=== PATIENT | female | born 1960 | race African-American/Black ===

== ENCOUNTER 2022-06-10 14:22 | Inpatient (IN) | payer MEDICARE, MEDICAID ==
[~2022-06-10] VITALS: Ht 158.8 cm; Wt 86.2 kg
[2022-06-10] MEDS ORDERED: ONDANSETRON HCL 4MG/2ML INJ IV STA (14:34)
[2022-06-10] MEDS ORDERED: MORPHINE SULFATE 4 MG/ML CPJ (NOT FOR IM USE) IV STA (14:34)
[2022-06-10] MEDS ORDERED: SODIUM CHLORIDE 0.9% 1,000 ML IV ONE (14:45)
[2022-06-10 15:25] LABS: BASOPHILS % 0.6 % (0.0-2.0); EOSINOPHILS % 0.6 % (0.0-5.0); HEMATOCRIT. 45.5 % (36.0-48.0); HEMOGLOBIN. 14.5 g/dL (12.0-16.0); LYMPHOCYTES % 41.1 % (20.0-50.0); MEAN CORPUSCULAR HEMOGLOBIN 26.4 pg (28.0-32.0); MEAN CORPUSCULAR VOLUME 82.9 fL (81.0-99.0); MEAN PLATELET VOLUME 11.4 fl (7.4-10.4); MONOCYTES % 6.2 % (2.0-8.0); NEUTROPHILS % 51.5 % (40.0-76.0); PLATELET 156 x1000/uL (130-400); RED BLOOD CELL COUNT 5.49 mill/uL (4.2-5.4); RED CELL DISTRIBUTION WIDTH 14.7 % (11.6-14.6)
[2022-06-10 15:27] LABS: CHLORIDE 106 mEq/L (98-107)
[2022-06-10] MEDS ORDERED: ASPIRIN 325MG EC TABLET PO ONE (16:00)
[2022-06-10] MEDS ORDERED: DIPHENHYDRAMINE 50MG/ML VIAL IV PRN (16:45)
[2022-06-10] MEDS ORDERED: ONDANSETRON HCL 4MG/2ML INJ IV PRN (16:45)
[2022-06-10] MEDS ORDERED: IPRATROPIUM/ALBUTEROL 0.5-3(2.5)MG/3ML NEB HHN PRN (16:45)
[2022-06-10] MEDS ORDERED: CLONIDINE 0.1MG TABLET PO PRN (16:45)
[2022-06-10 16:54] LABS: INR 0.9; PARTIAL THROMBOPLASTIN TIME 26.1 sec (23.4-31.0); PROTHROMBIN TIME 10.1 sec (9.6-11.0)
[2022-06-10 22:00] VITALS: BP 148/95
[2022-06-11] VITALS (8 sets, daily range): BP systolic 111–122; BP diastolic 38–55
[2022-06-11] MEDS: ACETAMINOPHEN 325MG TABLET PO PRN ×3 (00:05→13:18)
[2022-06-11 07:34] LABS: BASOPHILS % 0.5 % (0.0-2.0); EOSINOPHILS % 0.6 % (0.0-5.0); HEMATOCRIT. 43.2 % (36.0-48.0); HEMOGLOBIN. 13.7 g/dL (12.0-16.0); LYMPHOCYTES % 37.9 % (20.0-50.0); MEAN CORPUSCULAR HEMOGLOBIN 26.8 pg (28.0-32.0); MEAN CORPUSCULAR VOLUME 84.1 fL (81.0-99.0); MEAN PLATELET VOLUME 10.3 fl (7.4-10.4); MONOCYTES % 6.4 % (2.0-8.0); NEUTROPHILS % 54.6 % (40.0-76.0); PLATELET 125 x1000/uL (130-400); RED BLOOD CELL COUNT 5.14 mill/uL (4.2-5.4); RED CELL DISTRIBUTION WIDTH 14.4 % (11.6-14.6)
[2022-06-11 08:38] LABS: CHLORIDE 108 mEq/L (98-107)
[2022-06-11] MEDS ORDERED: INSU100V51 (08:52)
[2022-06-11] MEDS ORDERED: METF-416 MT (08:52)
[2022-06-11] MEDS ORDERED: DEXTROSE 50% WATER 50ML SYRINGE IV PRN (10:15)
[2022-06-11] MEDS: INSULIN LISPRO 100 UNITS/ML SUBCUT SCH ×3 (12:44→21:33)
[2022-06-11] MEDS: BLOOD SUGAR DIAGNOSTIC STRIP TEST SCH ×3 (12:44→20:52)
[2022-06-11] MEDS ORDERED: ACETAMINOPHEN 325MG TABLET PO PRN (13:45)
[2022-06-11] MEDS: HYDROCODONE/ACETAMINOPHEN 5/325MG TABLET PO PRN ×2 (16:03→20:31)
[2022-06-11] MEDS: ATORVASTATIN CALCIUM 20MG TABLET PO SCH (20:31)
[2022-06-12] VITALS: BP 114/55
[2022-06-12] MEDS: HYDROCODONE/ACETAMINOPHEN 5/325MG TABLET PO PRN ×4 (02:25→21:40)
[2022-06-12 04:00] VITALS: BP 128/57
[2022-06-12] MEDS: BLOOD SUGAR DIAGNOSTIC STRIP TEST SCH ×4 (07:24→21:00)
[2022-06-12] MEDS: INSULIN LISPRO 100 UNITS/ML SUBCUT SCH ×4 (07:24→22:05)
[2022-06-12 08:00] VITALS: BP_SYST 137; BP_SYST 145; BP_SYST 150; BP_DIAS 74; BP_DIAS 80; BP_DIAS 82
[2022-06-12 12:00] VITALS: BP 131/59
[2022-06-12] MEDS ORDERED: PROP40TA7 MT (13:16)
[2022-06-12 16:00] VITALS: BP 139/76
[2022-06-12] MEDS: METFORMIN HCL 500MG TABLET PO SCH (17:32)
[2022-06-12 20:00] VITALS: BP 144/74
[2022-06-12] MEDS: ATORVASTATIN CALCIUM 20MG TABLET PO SCH (21:41)
[2022-06-12] MEDS: PROPRANOLOL HCL 10MG TABLET PO SCH (21:41)
[2022-06-13] VITALS (8 sets, daily range): BP systolic 110–171; BP diastolic 57–91
[2022-06-13] MEDS: HYDROCODONE/ACETAMINOPHEN 5/325MG TABLET PO PRN ×3 (04:01→16:23)
[2022-06-13 06:26] LABS: CHLORIDE 107 mEq/L (98-107)
[2022-06-13 06:29] LABS: BASOPHILS % 0.4 % (0.0-2.0); EOSINOPHILS % 0.9 % (0.0-5.0); HEMATOCRIT. 40.1 % (36.0-48.0); HEMOGLOBIN. 12.6 g/dL (12.0-16.0); LYMPHOCYTES % 44.7 % (20.0-50.0); MEAN CORPUSCULAR HEMOGLOBIN 26.4 pg (28.0-32.0); MEAN CORPUSCULAR VOLUME 83.8 fL (81.0-99.0); MEAN PLATELET VOLUME 11.1 fl (7.4-10.4); MONOCYTES % 6.8 % (2.0-8.0); NEUTROPHILS % 47.2 % (40.0-76.0); PLATELET 125 x1000/uL (130-400); RED BLOOD CELL COUNT 4.78 mill/uL (4.2-5.4); RED CELL DISTRIBUTION WIDTH 14.5 % (11.6-14.6)
[2022-06-13] MEDS: BLOOD SUGAR DIAGNOSTIC STRIP TEST SCH ×4 (07:02→20:59)
[2022-06-13] MEDS: INSULIN LISPRO 100 UNITS/ML SUBCUT SCH ×4 (07:19→21:00)
[2022-06-13] MEDS: METFORMIN HCL 500MG TABLET PO SCH ×2 (08:08→17:39)
[2022-06-13] MEDS: PROPRANOLOL HCL 10MG TABLET PO SCH ×2 (09:03→21:00)
[2022-06-13] MEDS ORDERED: ATOR20TA PO (11:55)
[2022-06-13] MEDS: ATORVASTATIN CALCIUM 20MG TABLET PO SCH (20:59)
== END 2022-06-13 23:00 | disposition home health service (06) | DRG 73 ==
LOC: ER 14:22 → 7WST 15:53 → EDBEDREQTM 15:56 → EDBEDREQ 15:56 → ENRESERV 20:36
PROVIDERS: ADMIT Internal Medicine; ATTEND Internal Medicine
PROC: 4A00X4Z Measurement of Central Nervous Electrical Activity, External Approach (ICD-10-PCS; principal; 2022-06-12)
DX: G90.8 Other disorders of autonomic nervous system (principal); I21.A1 Myocardial infarction type 2; E66.9 Obesity, unspecified; E78.5 Hyperlipidemia, unspecified; I10 Essential (primary) hypertension; I34.1 Nonrheumatic mitral (valve) prolapse; R04.0 Epistaxis; J45.909 Unspecified asthma, uncomplicated; E11.9 Type 2 diabetes mellitus without complications; R77.8 Other specified abnormalities of plasma proteins; I27.20 Pulmonary hypertension, unspecified; E11.65 Type 2 diabetes mellitus with hyperglycemia; Z68.34 Body mass index [BMI] 34.0-34.9, adult; Z86.73 Personal history of transient ischemic attack (TIA), and cerebral infarction without residual deficits; Z88.0 Allergy status to penicillin; Z90.710 Acquired absence of both cervix and uterus
CPT/HCPCS: 36415; 70486; 70551; 71045; 80048; 80053; 82962; 83036; 83880; 84484; 85025; 93005; 93306; 93880; 93970; 95816; 97162; 99285; J1815; J2270; J2405; J7030

== ENCOUNTER 2024-08-19 11:31 | Emergency (ER) | payer MEDICARE, MEDICAID ==
[~2024-08-19] VITALS: Ht 165.1 cm; Wt 100.0 kg
[~2024-08-19 11:31] MED LIST: ATOR20TA PO; INSU100V51; METF-416 MT; PROP40TA7 MT
[2024-08-19 11:40] VITALS: O2SAT 100
[2024-08-19] MEDS ORDERED: IBUPROFEN 400MG TABLET PO ONE (13:15)
[2024-08-19] MEDS ORDERED: ACETAMINOPHEN 325MG TABLET PO ONE (13:15)
[2024-08-19] MEDS ORDERED: HYDROCODONE/ACETAMINOPHEN 5/325MG TABLET PO ONE (15:45)
[2024-08-19] MEDS ORDERED: TOPUD MT (15:46)
[2024-08-19] MEDS ORDERED: LIDO700A30 TP (15:46)
[2024-08-19] MEDS: LIDOCAINE 5% PATCH TOP SCH (16:14)
[2024-08-19 16:15] VITALS: TEMP 97.9
[2024-08-19] MEDS: ACETAMINOPHEN 325MG TABLET PO NR (16:15)
[2024-08-19] MEDS: HYDROCODONE/ACETAMINOPHEN 5/325MG TABLET PO NR (16:15)
[2024-08-19 16:16] VITALS: BP 172/110; PULSE 62; RESP 16
[2024-08-19] MEDS: IBUPROFEN 400MG TABLET PO NR (16:16)
== END 2024-08-19 16:32 | disposition home or self-care (01) ==
LOC: ER 11:47
DX: M25.572 Pain in left ankle and joints of left foot (principal); J45.909 Unspecified asthma, uncomplicated; E11.9 Type 2 diabetes mellitus without complications; I10 Essential (primary) hypertension; Z79.899 Other long term (current) drug therapy; Z90.710 Acquired absence of both cervix and uterus; Z88.0 Allergy status to penicillin
CPT/HCPCS: 73030; 73502; 73562; 73600; 99284